=== PATIENT | female | born 1950 | race American Indian/Alaskan Native ===

== ENCOUNTER 2020-09-02 19:05 | Emergency (ER) | payer MEDICARE ==
[2020-09-02] MEDS ORDERED: SODIUM CHLORIDE 0.9% 1000 ML 1,000 ML IV ONE (19:47)
--- NOTE | 2020-09-02 19:53 | Emergency Department Report ---
HPI - General Time Seen by Provider: 09/02/20 19:19 - HPI HPI: Room 25 The patient is a 70-year-old female present with a chief complaint of dizziness. The patient states 2 days ago she was at rest when she felt as though the room was spinning. The patient states she called her primary physician and they sent someone to check her vitals. Patient states she was told her blood pressure was low but eventually her systolic was above 100. Today while at the table and the patient again felt dizzy and states she could not respond. Patient denies losing consciousness but states it felt like the room was spinning. A family member checked the patient's blood pressure and she was found to be hypotensive with a systolic in the 70s. EMS was called and transported the patient to the ED. Patient currently states she feels good and is without complaints. Patient denied ever losing consciousness or having chest pain, shortness of breath or nausea/vomiting. Patient has a history of hypertension and states she takes losartan 25 mg daily. The patient states last time she took this medication was when the room was spinning. ED Past Medical Hx - Past Medical History Hx Hypertension: Yes Hx Diabetes: Yes Additional medical history: Hypercholesterolemia - Surgical History Additional Surgical History: Bilateral tubal ligation, partial hysterectomy, T&A - Family History Family history: no significant - Social History Smoking Status: Never Smoker Substance Use Type: None (Denies illicit drug use) ED Review of Systems ROS: Stated complaint: GENERAL WEAKNESS Other details as noted in HPI Constitutional: no symptoms reported Eyes: denies: eye pain ENT: denies: throat pain Respiratory: denies: shortness of breath Cardiovascular: denies: chest pain, palpitations Endocrine: no symptoms reported Gastrointestinal: denies: abdominal pain, nausea, vomiting Genitourinary: denies: dysuria Musculoskeletal: denies: back pain Neurological: vertigo. denies: headache Physical Exam - Physical Exam Physical Exam: GENERAL: The patient is well-developed well-nourished female lying on stretcher not appearing to be in acute distress. [] HEENT: Normocephalic. Atraumatic. Extraocular motions are intact. Patient has moist mucous membranes. NECK: Supple. Trachea midline CHEST/LUNGS: Clear to auscultation. There is no respiratory distress noted. HEART/CARDIOVASCULAR: Regular. There is no tachycardia. There is no gallop rub or murmur. ABDOMEN: Abdomen is soft, nontender. Patient has normal bowel sounds. There is no abdominal distention. SKIN: There is no rash. There is no edema. There is no diaphoresis. NEURO: The patient is awake, alert, and oriented. The patient is cooperative. The patient has no focal neurologic deficits. The patient has normal speech. Cranial nerves II through XII grossly intact. No dysmetria noted with [id number]-[id number] bilaterally. GCS 15 MUSCULOSKELETAL: There is no evidence of acute injury. ED Medical Decision Making - Lab Data Result diagrams: 09/02/20 19:54 09/02/20 19:54 Laboratory Tests 09/02/20 09/02/20 09/02/20 19:54 19:54 19:54 WBC 5.5 RBC 3.63 L Hgb 10.7 Hct 31.4 MCV 87 MCH 30 MCHC 34 RDW 13.9 Plt Count 204 Lymph % (Auto) 33.9 Stafford % (Auto) 6.4 Eos % (Auto) 0.6 Baso % (Auto) 0.9 Lymph # (Auto) 1.9 Stafford # (Auto) 0.4 Eos # (Auto) 0.0 Baso # (Auto) 0.0 Seg Neutrophils % 58.2 Seg Neutrophils # 3.2 D-Dimer < 135.00 Sodium 132 L Potassium 5.3 H Chloride 96.7 L Carbon Dioxide 27 Anion Gap 14 BUN 21 H Creatinine 0.8 Estimated GFR > 60 BUN/Creatinine Ratio 26 Glucose 97 Calcium 9.4 Total Creatine Kinase 60 CK-MB (CK-2) 1.6 CK-MB (CK-2) Rel Index 2.6 Troponin T < 0.010 - EKG Data -: EKG Interpreted by Id EKG shows normal: sinus rhythm Rate: bradycardia (57 bpm) - EKG Data When compared to previous EKG there are: previous EKG unavailable Interpretation: other (No ischemic changes seen) - Radiology Data Radiology results: report reviewed (CT head), image reviewed (CT head) [facility] [address] [place] [address] Cat Scan Report Signed Patient: SUSI CASTAÑEDA MR#: [id number] 28 : 1950 Acct:[id number] Age/Sex: 70 / F ADM Date: 09/02/20 Loc: ED Attending Dr: Ord ering Physician: ROGE CROCKER MD Date of Service: 09/02/20 Procedure(s): CT head/brain wo con Accession Number(s): [id number] cc: ROGE CROCKER MD CT head/brain wo con INDICATION: Dizziness. TECHNIQUE: Routine CT head. All CT scans at this location are performed using CT dose reduction for ALARA by means of automated exposure control. COMPARISON: None. 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 Will-white matter differentiation is maintained. No intracranial hemorrhage. No extra axial collection. No hydrocephalus. No herniation. Sinuses: Paranasal sinuses and mastoid air cells are essentially clear. Orbits: Globes are intact. Calvarium: No acute fracture. IMPRESSION: 1. No acute intracranial abnormality. Signer Name: Luis Miguel Lyn MD Signed: 09/02/2020 8:33 PM Workstation Name: [id number] Transcribed By: CS Dictated By: Luis Miguel Lyn MD Electronically Authenticated By: Luis Miguel Lyn MD Signed Date/Time: 09/02/202032 DD/ 31 TD/TT: Print Cancel - Differential Diagnosis Hypotension, vertigo, ICH, intracranial mass, symptomatic anemia Critical care attestation.: If time is entered above; I have spent that time in minutes in the direct care o f this critically ill patient, excluding procedure time. ED Disposition Clinical Impression: Dizziness, Hypotension Disposition: DC-01 TO HOME OR SELFCARE Is pt being admited?: No Does the pt Need Aspirin: No Condition: Stable Instructions: Hypotension, Zvsr-es-[id number] Additional Instructions: You should not take your blood pressure medication until you are cleared by your primary physician. Return to the emergency department should you develop worsening symptoms, inability to tolerate food or liquids, high fever or any other concerns Referrals: CAPRICE YARBROUGH [Other] - BRAVO Time of Disposition: 22:32
--- NOTE | 2020-09-02 20:37 | Cat Scan Report ---
CT head/brain wo con INDICATION: Dizziness. TECHNIQUE: Routine CT head. All CT scans at this location are performed using CT dose reduction for A FIOR by means of automated exposure control. COMPARISON: None. 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 Will-w roberto matter differentiation is maintained. No intracranial hemorrhage. No extra axial collection. No hydrocephalus. No herniation. Sinuses: Paranasal sinuses and mastoid air cells are essentially clear. Orbits: Globes are intact. Calvarium: No acute fracture. IMPRESSION: 1. No acute intracranial abnormality. Signer Name: Luis Miguel Lyn MD Signed: 09/02/2020 8:33 PM Workstation Name: [id number]
[2020-09-02 20:53] LABS: Basophils % (Auto) 0.9 % (0.0-1.8); Eosinophils % (Auto) 0.6 % (0.0-4.3); Hematocrit 31.4 % (30.3-42.9); Hemoglobin 10.7 gm/dl (10.1-14.3); Lymphocytes # (Auto) 1.9 K/mm3 (1.2-5.4); Lymphocytes % (Auto) 33.9 % (13.4-35.0); Mean Corpuscular HGB Conc 34 % (30-34); Mean Corpuscular Volume 87 fl (79-97); Monocytes # (Auto) 0.4 K/mm3 (0.0-0.8); Monocytes % (Auto) 6.4 % (0.0-7.3); Platelet Count 204 K/mm3 (140-440); Red Blood Count 3.63 M/mm3 (3.65-5.03); Red Cell Distribution Width 13.9 % (13.2-15.2)
[2020-09-02 21:11] LABS: Creatine Kinase MB 1.6 ng/mL (0.0-4.0)
[2020-09-02 21:12] LABS: BUN/Creatinine Ratio 26; Blood Urea Nitrogen 21 mg/dL (7-17); Calcium 9.4 mg/dL (8.4-10.2); Hemolysis Index 10
[2020-09-02 22:57] VITALS: BP 113/50
--- NOTE | 2020-09-03 14:32 | Electrocardiograph Report ---
[facility] Test Date: 2020-09-02 Test Time: 22:24:26 Pat Name: SUSI CASTAÑEDA Department: Room: Gender: F Gum Puller: ROSLYN : 1950 Requested By: ROGE CROCKER Order Number: [id number] Reading MD: Kirit Mccartney Measurements Intervals [place] Rate: 57 P: 68 GA: 183 QRS: 37 QRSD: 77 T: 36 QT: 421 QTc: 409 Interpretive Statements Sinus bradycardia No previous ECG available for comparison Electronically Signed On 09-03-2020 14:32:33 EDT by Kirit Mccartney
== END 2020-09-02 22:57 | disposition home or self-care (01) ==
LOC: ED 19:05
DX: I95.9 Hypotension, unspecified (principal); R42 Dizziness and giddiness; I10 Essential (primary) hypertension; E11.9 Type 2 diabetes mellitus without complications; E78.00 Pure hypercholesterolemia, unspecified; Z90.710 Acquired absence of both cervix and uterus; Z79.899 Other long term (current) drug therapy; Z98.51 Tubal ligation status; Z88.6 Allergy status to analgesic agent
CPT/HCPCS: 36415; 70450; 80048; 82550; 82553; 84484; 85025; 85379; 93005; 96360; 99284

== ENCOUNTER 2021-07-26 23:53 | Emergency (ER) | payer MEDICARE ==
[2021-07-27 08:14] VITALS: BP 155/43
[2021-07-27] MEDS ORDERED: HYDROcodone/ACETAMINOPHEN 5-325 MG TAB PO STA (11:25)
--- NOTE | 2021-07-27 12:38 | Cat Scan Report ---
CT head/brain wo con INDICATION / CLINICAL INFORMATION: 71 years Female; head trayma. TECHNIQUE: Routine CT head without contrast. All CT scans at this location are performed using CT dos e reduction for ALARA by means of automated exposure control. COMPARISON: The study is compared to previous CT of 09/02/2020. FINDINGS: BRAIN / INTRACRANIAL CONTENTS: There is moderate cerebral white matter disease most notably involving the right frontal lobe and most consistent with microvascular angiopathy. Is mild cerebral atrophy w ith associated mild prominence of the ventricular system. There is no clear CT evidence of acute intr acranial hemorrhage or significant mass effect. ORBITS: No significant abnormality of visualized orbits. SINUSES / MASTOIDS: No significant abnormality in the visualized paranasal sinuses or mastoid air angelica ls. CRANIOCERVICAL JUNCTION: No significant abnormality. ADDITIONAL FINDINGS: None. IMPRESSION: 1. 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 Signer Name: Melchor Underwood MD Signed: 07/27/2021 12:34 PM Workstation Name: [id number]
--- NOTE | 2021-07-27 12:54 | Emergency Department Report ---
ED General Adult HPI - General Chief complaint: BP Check / Ring removal req Stated complaint: HYPOTENSION Time Seen by Provider: 07/27/21 11:24 Source: patient Mode of arrival: Ambulatory Limitations: No Limitations - History of Present Illness Initial comments: 71-year-old Bangl[place] female presents emerged department complaining of dull throbbing headache after she reports falling down x2 on yesterday striking her head against a hard hard dresser x2 months on the left frontal wants on the right frontal. States she had been having some social issues with hypotension but that was resolved when she had drink or salt water that brought her blood pressure into normal range. However during her episodes of having low blood pressure she reports falling causing a head injury she she denies any seizure activity, neck pain, chest pain, fever, chills, sweats. No nausea, no no vomiting pain is dull and throbbing she request pain medication primarily. Location: head Radiation: non-radiation Severity scale (0 -10): 10 Quality: dull Consistency: constant Improves with: none Worsens with: none Associated Symptoms: denies other symptoms. denies: fever/chills Treatments Prior to Arrival: none - Related Data Previous Rx's Medication Instructions Recorded Last Taken Type Lactulose [Cephulac] 20 gm PO QDAY PRN #90 ml 09/02/20 Unknown Rx traMADoL [Ultram] 50 mg PO Q12HR PRN #14 07/27/21 Unknown Rx Allergies Allergy/AdvReac Type Severity Reaction Status Date / Time codeine Allergy Severe Shortness Verified 09/02/20 22:45 of Breath ED Review of Systems ROS: Stated complaint: HYPOTENSION Other details as noted in HPI Comment: All other systems reviewed and negative (Speaking in full sentences no acute distress) ED Past Medical Hx - Past Medical History Hx Hypertension: Yes Hx Diabetes: Yes Additional medical history: Hypercholesterolemia - Surgical History Additional Surgical History: Bilateral tubal ligation, partial hysterectomy, T&A - Social History Smoking Status: Never Smoker Substance Use Type: None (Denies illicit drug use) - Medications Home Medications: Home Medications Medication Instructions Recorded Confirmed Last Taken Type Lactulose [Cephulac] 20 gm PO QDAY PRN #90 ml 09/02/20 Unknown Rx traMADoL [Ultram] 50 mg PO Q12HR PRN #14 07/27/21 Unknown Rx ED Physical Exam - General Limitations: No Limitations General appearance: alert, in no apparent distress - Head Head exam: Present: atraumatic, normocephalic - Eye Eye exam: Present: normal appearance, PERRL, EOMI Pupils: Present: normal accommodation - ENT ENT exam: Present: mucous membranes moist - Neck Neck exam: Present: normal inspection - Respiratory Respiratory exam: Present: normal lung sounds bilaterally. Absent: respiratory distress - Cardiovascular Cardiovascular Exam: Present: regular rate, normal rhythm. Absent: systolic murmur, diastolic murmur, rubs, gallop - GI/Abdominal GI/Abdominal exam: Present: soft, normal bowel sounds - Extremities Exam Extremities exam: Present: normal inspection - Back Exam Back exam: Present: normal inspection - Neurological Exam Neurological exam: Present: alert, oriented X3, CN II-XII intact, normal gait, other - Psychiatric Psychiatric exam: Present: normal affect, normal mood - Skin Skin exam: Present: warm, dry, intact, normal color. Absent: rash ED Course Vital Signs 07/27/21 07/27/21 00:00 08:12 Temperature 97.9 F Pulse Rate 62 59 L Respiratory 16 16 Rate Blood Pressure 121/52 Blood Pressure 155/43 [Left] O2 Sat by Pulse 100 95 Oximetry ED Medical Decision Making - Radiology Data Radiology results: report reviewed [facility] [address] [place] [address] Cat Scan Report Signed Patient: SUSI CASTAÑEDA MR#: [id number] 28 : 1950 Acct:[id number] Age/Sex: 71 / F ADM Date: 07/26/21 Loc: ED Attending Dr: Ordering Physician: MADHU SORENSON Date of Service: 07/27/21 Procedure(s): CT head/brain wo con Accession Number(s): [id number] cc: MADHU SORENSON CT head/brain wo con INDICATION / CLINICAL INFORMATION: 71 years Female; head trayma. TECHNIQUE: Routine CT head without contrast. All CT scans at this location are performed using CT dose reduction for ALARA by means of automated exposure control. COMPARISON: The study is compared to previous CT of 09/02/2020. FINDINGS: BRAIN / INTRACRANIAL CONTENTS: There is moderate cerebral white matter disease most notably involving the right frontal lobe and most consistent with microvascular angiopathy. Is mild cerebral atrophy with associated mild prominence of the ventricular system. There is no clear CT evidence of acute intracranial hemorrhage or significant mass effect. ORBITS: No significant abnormality of visualized orbits. SINUSES / MASTOIDS: No significant abnormality in the visualized paranasal sinuses or mastoid air cells. CRANIOCERVICAL JUNCTION: No significant abnormality. ADDITIONAL FINDINGS: None. IMPRESSION: 1. 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 Signer Name: Melchor Underwood MD Signed: 07/27/2021 12:34 PM Workstation Name: [id number] Transcribed By: MR Dictated By: Melchor Underwood MD Electronically Authenticated By: Melchor Underwood MD Signed Date/Time: 07/27/21 1234 DD/ 1230 TD/TT: Critical care attestation.: If time is entered above; I have spent that time in minutes in the direct care of this critically ill patient, excluding procedure time. ED Disposition Clinical Impression: Head injury due to trauma Disposition: 01 HOME / SELF CARE / HOMELESS Is pt being admited?: No Does the pt Need Aspirin: No Condition: Stable Instructions: How to Use Cold Therapy, Head Injury, Adult Prescriptions: traMADoL [Ultram] 50 mg PO Q12HR PRN #14 PRN Reason: pain Referrals: [facility] [Provider Group] - 3-5 Days
== END 2021-07-27 13:23 | disposition home or self-care (01) ==
LOC: ED 23:53
DX: S09.90XA Unspecified injury of head, initial encounter (principal); I10 Essential (primary) hypertension; E11.9 Type 2 diabetes mellitus without complications; Z91.09 Other allergy status, other than to drugs and biological substances; Z79.899 Other long term (current) drug therapy; X58.XXXA Exposure to other specified factors, initial encounter; Y93.89 Activity, other specified; Y92.89 Other specified places as the place of occurrence of the external cause; Y99.8 Other external cause status
CPT/HCPCS: 70450; 82962; 99283

== ENCOUNTER 2021-07-26 23:59 | Emergency (ER) | payer MEDICARE | END 2021-07-28 00:24 | disposition left against medical advice (07) | LOC: ED 23:59 | DX: R03.1 Nonspecific low blood-pressure reading (principal); Z53.21 Procedure and treatment not carried out due to patient leaving prior to being seen by health care provider ==